=== PATIENT | female | born 1985 | race Caucasian/White ===

== ENCOUNTER 2017-10-14 17:04 | Emergency (ER) | payer OTHER ==
[2017-10-14 17:16] VITALS: BP 155/95
--- NOTE | 2017-10-14 17:32 | ED ---
GI/ HPI - HPI Summary HPI Summary: 32 female presents with abdominal pain for past week. admits to nausea but no vomiting. she had diarrhea yesterday. no blood or mucous in stool. 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 She states rats are tested for parasites. She denies anyone else being sick. no different food. No fevers. No cough. No vaginal discharge. No dysuria. No flank pain. She states the pain is generalized. She says an achy type pain. States she has not been drinking as much due to being nauseous. She has no medical conditions. - History of Current Complaint Chief Complaint: UCAbdominalPain Time Seen by Provider: 10/14/17 17:22 Stated Complaint: ABDOMINAL PAIN Hx Last Menstrual Period: 10 days ago Pain Intensity: 2 - Allergy/Home Medications Allergies/Adverse Reactions: Allergies Allergy/AdvReac Type Severity Reaction Status Date / Time Sulfa (Sulfonamide Allergy Swelling Verified 10/14/17 17:16 Antibiotics) Home Medications: Home Medications ISOtretinoin [Isotretinoin] 80 mg PO DAILY 10/14/17 [History Confirmed 10/14/17] PMH/Surg Hx/FS Hx/Imm Hx Endocrine/Hematology History: Denies: Hx Anticoagulant Therapy Cardiovascular History: Denies: Hx Hypertension - Surgical History Surgery Procedure, Year, and Place: Left ear reconstruction Infectious Disease History: No Infectious Disease History: Reports: Traveled Outside the in Last 30 Days - [place] - Social History Alcohol Use: Occasionally Substance Use Type: Reports: Marijuana Smoking Status (MU): Never Smoked Tobacco Review of Systems Negative: Fever Negative: Chest Pain Negative: Shortness Of Breath Positive: Abdominal Pain, Diarrhea, Nausea. Negative: Vomiting All Other Systems Reviewed And Are Negative: Yes Physical Exam Triage Information Reviewed: Yes Vital Signs On Initial Exam: Initial Vitals Temp Pulse Resp BP Pulse Ox 98.5 F 78 18 155/95 99 10/14/17 17:11 10/14/17 17:11 10/14/17 17:11 10/14/17 17:11 10/14/17 17:11 Vital Signs Reviewed: Yes Appearance: Positive: Well-Appearing Skin: Positive: Warm, Dry Head/Face: Positive: Normal Head/Face Inspection Eyes: Positive: Normal, Conjunctiva Clear ENT: Positive: Pharynx normal Respiratory/Lung Sounds: Positive: Clear to Auscultation, Breath Sounds Present Cardiovascular: Positive: Normal, RRR Abdomen Description: Positive: Soft, Guarding, Other: - mild diffuse tenderness , no rebound Musculoskeletal: Positive: Normal Neurological: Positive: Normal Psychiatric: Positive: Normal Diagnostics - Vital Signs Vital Signs Temp Pulse Resp BP Pulse Ox 10/14/17 17:11 98.5 F 78 18 155/95 99 - Laboratory Lab Statement: Any lab studies that have been ordered have been reviewed, and results considered in the medical decision making process. GIGU Course/Dx - Course Course Of Treatment: 32 female presents with abdominal pain for past week. admits to nausea but no vomiting. she had diarrhea yesterday. no blood or mucous in stool. 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 She states rats are tested for parasites. She denies anyone else being sick. no different food. No fevers. No cough. No vaginal discharge. No dysuria. No flank pain. She states the pain is generalized. She says an achy type pain. States she has not been drinking as much due to being nauseous. She has no medical conditions. on exam has mild generalized abd pain. in no acute distress. sx unlikely due to rat borne disease. unable to give stool sample. will give zofran. will have follow up primary about blood pressure as is elevated at this time. patient understand and agrees with plan. - Diagnoses Differential Diagnoses - Female: Gastroenteritis (Viral), Gastroenteritis ( Bacterial), Urinary Tract Infection Provider Diagnoses: Abdominal pain, Nausea, Elevated blood pressure reading, Diarrhea Discharge - Sign-Out/Discharge Documenting (check all that apply): Patient Departure All imaging exams completed and their final reports reviewed: No Studies - Discharge Plan Condition: Good Disposition: HOME Prescriptions: Ondansetron ODT TAB* [Zofran 4 MG Odt TAB*] 4 mg PO Q6H PRN #16 tab.odt PRN Reason: Nausea Patient Education Materials: Abdominal Pain (ED) Referrals: [facility] [Outside] Additional Instructions: est care with primary Can take Zofran every 6 hours as needed for nausea Drink small amounts of fluid as tolerated When able to eat follow BRAT diet: Bananas, rice, applesauce, toast Take ibuprofen or Tylenol for pain as needed every 6 hours Return to ED if develop fever, severe abdominal pain, or any new or worsening symptoms - Billing Disposition and Condition Condition: GOOD Disposition: Home
== END 2017-10-14 17:37 | disposition home or self-care (01) ==
LOC: UCEAST 17:04
DX: R10.9 Unspecified abdominal pain (principal); R11.0 Nausea; R03.0 Elevated blood-pressure reading, without diagnosis of hypertension; R19.7 Diarrhea, unspecified; Z88.1 Allergy status to other antibiotic agents
CPT/HCPCS: 99212; G0463

== ENCOUNTER 2018-04-29 15:40 | Emergency (ER) | payer OTHER ==
[2018-04-29 15:51] VITALS: BP 145/93
--- NOTE | 2018-04-29 16:05 | UC ---
Hand/Wrist HPI - HPI Summary HPI Summary: 33 yo female presents with LEFT wrist and base of thumb pain for the last 3 weeks. She tells me that 3 weeks ago she tripped going down the stairs and caught herself with her left hand on the railing. Her left wrist/thumb twisted. Since that time she has been having pain at the radial aspect of her left wrist and the base of her left thumb. Twisting motions make her pain worse. Resting makes her pain better. Has been taking ibuprofen with mild relief. She is right handed. Denies numbness or tingling. - History Of Current Complaint Chief Complaint: UCUpperExtremity Stated Complaint: L WRIST INJURY Time Seen by Provider: 04/29/18 16:05 Hx Obtained From: Patient Hx Last Menstrual Period: 1 week ago Onset/Duration: Sudden Onset Severity Initially: Mild Severity Currently: Mild Pain Intensity: 1 Pain Scale Used: 0-10 Numeric - Allergies/Home Medications Allergies/Adverse Reactions: Allergies Allergy/AdvReac Type Severity Reaction Status Date / Time Sulfa (Sulfonamide Allergy Swelling Verified 04/29/18 15:51 Antibiotics) multiple fruits Allergy Unknown Uncoded 04/29/18 15:51 Reaction Details Home Medications: Home Medications Ibuprofen TAB* [Advil TAB*] 400 mg PO BID PRN 04/29/18 [History Confirmed ] PMH/Surg Hx/FS Hx/Imm Hx - Additional Past Medical History Additional PMH: None Other History Of: Negative For: Anticoagulant Therapy - Surgical History Surgical History: Yes Surgery Procedure, Year, and Place: Left ear reconstruction - Family History Known Family History: Positive: None - Social History Occupation: Employed Full-time Lives: With Family Alcohol Use: Weekly Substance Use Type: Marijuana Smoking Status (MU): Never Smoked Tobacco Review of Systems All Other Systems Reviewed And Are Negative: Yes Constitutional: Positive: Negative Skin: Positive: Negative Respiratory: Positive: Negative Cardiovascular: Positive: Negative Gastrointestinal: Positive: Negative Neurovascular: Positive: Negative Musculoskeletal: Positive: Other: - Left wrist/thumb pain Neurological: Positive: Negative Psychological: Positive: Negative Physical Exam - Summary Physical Exam Summary: GENERAL: NAD. WDWN. No pain distress. SKIN: No rashes, sores, lesions, or open wounds. CHEST: No accessory muscle use. Breathing comfortably and in no distress. CV: Pulses intact radial and ulnar. Cap refill <2seconds MSK: Mild TTP at base of thumb dorsal thumb. FROM at wrist and thumb without pain. Pain with hyperflexion and hyperextension of wrist. 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 No edema or obvious bony deformities. No snuffbox tenderness. NEURO: Alert. Sensations intact hand and all fingers. PSYCH: Age appropriate behavior. Triage Information Reviewed: Yes Vital Signs: Initial Vital Signs Temp 98.4 F 04/29/18 15:47 Pulse 88 04/29/18 15:47 Resp 14 04/29/18 15:47 BP 145/93 04/29/18 15:47 Pulse Ox 100 04/29/18 15:47 Vital Signs Reviewed: Yes Hand/Wrist Course/Dx - Course Course Of Treatment: XR: IMPRESSION: NO EVIDENCE FOR FRACTURE. IF THE PATIENT'S SYMPTOMS PERSIST RECOMMEND. FOLLOW-UP IMAGING. She was placed in a thumb spica splint and advised to RICE and use this as much as possible. Given her length of symptoms without improvement - strongly encouraged to f/u with Orthopedics for further evaluation of her pain and injury. - Differential Dx/Diagnosis Provider Diagnosis: Left wrist pain, Pain of left thumb Discharge - Sign-Out/Discharge Documenting (check all that apply): Patient Departure All imaging exams completed and their final reports reviewed: Yes - Discharge Plan Condition: Stable Disposition: HOME Patient Education Materials: Wrist Sprain (ED) Referrals: Tristan Valenzuela MD [Primary Care Provider] - Montana Reed MD [Medical Doctor] - As Soon As Possible Additional Instructions: If you develop a fever, shortness of breath, chest pain, new or worsening symptoms - please call your PCP or go to the ED. Your blood pressure was high at todays visit. Please see your primary provider within 4 weeks for recheck and re-evaluation. 1) Rest, Ice, and elevate your thumb/wrist as much as possible 2) Use the thumb splint as much as possible 3) Please call Orthopedics at the number below to schedule an appointment for further evaluation regarding your injury - Billing Disposition and Condition Condition: STABLE Disposition: Home
== END 2018-04-29 16:35 | disposition home or self-care (01) ==
LOC: UCEAST 15:40
DX: M25.532 Pain in left wrist (principal); M79.645 Pain in left finger(s); W10.9XXA Fall (on) (from) unspecified stairs and steps, initial encounter; Y93.01 Activity, walking, marching and hiking; Y92.9 Unspecified place or not applicable
CPT/HCPCS: 99212; G0463

== ENCOUNTER 2018-08-06 10:00 | Emergency (ER) | payer OTHER ==
--- OUTSIDE RECORDS SUMMARY | 2018-08-06 10:07 | XMS REPORT | Continuity of Care Document ---
:1985 External Reference #:[id number] Demographics Address [address] [place] [address] Mobile Phone [phone] Email Address Preferred Language en Marital Status Not or Scientologist Affiliation Unknown Race White Ethnic Group Not or Author Name Candelario Alonzo Care Team Providers Name Role Phone Tristan Valenzuela MD Primary Care Physician Unavailable Payers Date Identification Numbers Payment Provider Subscriber Policy Number: [id number] [employer] Jessica Gruber PayID: [id number] [address] [place] [address] Onset: 2018 Policy Number: [id number] Vishnu Bozena Gruber Group Name: Julienne [phone] [address] PayID: [id number] [place] [address] Family History Date Family Member(s) Observation Comments General Heart Disease General Hypertension General Stroke General Cancer Social History Type Date Description Comments Sex Unknown 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 ETOH Use Currently consumes alcohol Tobacco Use Start: Unknown Patient has never smoked Smoking Status Reviewed: 07/30/18 Patient has never smoked Exercise Type/Frequency Exercises regularly Allergies, Adverse Reactions, Alerts Active Allergies Reaction Severity Comments Date Sulfa 05/07/2018 Medications Active Medications SIG Qnty Indications Ordering Provider Date Ibuprofen 1 tab by mouth Unknown 400mg Tablets every 4 to 6 hours as needed Vital Signs Date Vital Result Comment 07/30/2018 10:47am Height 61 inches 5'1" Weight 144.00 lb Heart Rate 60 /min BP Systolic 118 mmHg BP Diastolic 72 mmHg Respiratory Rate 12 /min Body Temperature 98.1 F Pain Level 2 BMI (Body Mass Index) 27.2 kg/m2 07/02/2018 2:00pm Height 61 inches 5'1" Weight 136.00 lb BP Systolic 123 mmHg BP Diastolic 72 mmHg Respiratory Rate 14 /min Body Temperature 97.3 F Pain Level 3 BMI (Body Mass Index) 25.7 kg/m2 06/04/2018 1:41pm Height 61 inches 5'1" Weight 136.00 lb Heart Rate 72 /min BP Systolic Sitting 138 mmHg BP Diastolic Sitting 84 mmHg Respiratory Rate 14 /min Pain Level 1 BMI (Body Mass Index) 25.7 kg/m2 05/07/2018 2:12pm Height 61 inches 5'1" Weight 136.00 lb Heart Rate 78 /min Body Temperature 97.3 F O2 % BldC Oximetry 88 % BMI (Body Mass Index) 25.7 kg/m2 Results Test Date Facility Test Result H/L Range Note Laboratory test 04/10/2017 [facility] Test negative finding Urine Comp Metabolic 04/10/2017 [facility] Sodium 137 mmol/L N 133- 145 1 Panel 101 [place] [address] [phone] Potassium 3.9 mmol/L N 3.5-5.0 Chloride 104 mmol/L N 101-111 Co2 Carbon Dioxide 24 mmol/L N 22-32 Anion Gap 9 mmol/L N 2-11 Glucose 77 mg/dL N 70-100 Blood Urea Nitrogen 12 mg/dL N 6-24 Creatinine 0.74 mg/dL N 0.51-0.95 BUN/Creatinine Ratio 16.2 N 8-20 Calcium 9.5 mg/dL N 8.6-10.3 Total Protein 7.2 g/dL N 6.4-8.9 Albumin 4.6 g/dL N 3.2-5.2 Globulin 2.6 g/dL N 2-4 Albumin/Globulin Ratio 1.8 N 1-3 Total Bilirubin 0.60 mg/dL N 0.2-1.0 Alkaline Phosphatase 73 U/L N 34-104 Alt 11 U/L N 7-52 Ast 23 U/L N 13-39 Egfr Non- 90.4 >60 Egfr 116.2 >60 2 Laboratory test finding 04/10/2017 [facility] Triglyceride 72 mg /dL 3 [address] [place] [address] [phone] 1 [id number] 2 Because ethnic data is not always readily available, this report includes an eGFR for both -Americans and non- Americans. The National Kidney Disease Education Program (NKDEP) does not endorse the use of the MDRD equation for patients that are not between the ages of 18 and 70, are , have extremes of body size, muscle mass, or nutritional status, or are non- or non-. According to the National Kidney Foundation, irrespective of diagnosis, the stage of the disease is based on the level of kidney function: Stage Description GFR(mL/min/1.73 m(2)) 1 Kidney damage with normal or decreased GFR 90 2 Kidney damage with mild decrease in GFR 60-89 3 Moderate decrease in GFR 30-59 4 Severe decrease in GFR 15-29 5 Kidney failure <15 (or dialysis) 3 Desirable: <150 Borderline High: 150-199 High: 200-499 Very High: >500 Encounters Type Date Location Provider Dx Diagnosis Office Visit 07/02/2018 [facility] S63.642D Sprain of 2:00p [facility] metacarpophalangeal C.[facility]. joint of left thumb, subs S63.502A Unspecified sprain of left wrist, initial encounter Office 06/04/2018 [facility] S63.642D Sprain of Visit 1:45p [facility] metacarpophalangeal C.M.A. joint of left thumb, subs Office 05/07/2018 [facility] K[facility]y S63.642A Sprain of Visit 2:00p [facility], metacarpophalangeal C.M.A. 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
[2018-08-06 10:18] VITALS: BP 136/86
--- NOTE | 2018-08-06 10:19 | UC ---
Shoulder Pain HPI - HPI Summary HPI Summary: 33 yo female presents with right neck pain. She tells me that 2 days ago she woke up with right neck pain/spasm that is worse with turning her head side to side. She applied ice and heat and took tylenol and ibuprofen. Since that time her pain has improved slightly, but is still present. She has some radiation of the pain down her right arm and into her thumb and index finger. Denies injury, headache, dizziness, SOB, chest pain. She is right handed. - History of Current Complaint Chief Complaint: UCUpperExtremity Stated Complaint: RT SHOULDER PAIN Time Seen by Provider: 08/06/18 10:17 Hx Obtained From: Patient Hx Last Menstrual Period: 07/19/18 Onset/Duration: Sudden Onset Timing: Constant Severity Initially: Severe Severity Currently: Moderate Pain Intensity: 7 - Allergies/Home Medications Allergies/Adverse Reactions: Allergies Allergy/AdvReac Type Severity Reaction Status Date / Time Sulfa (Sulfonamide Allergy Swelling Verified 08/06/18 10:18 Antibiotics) multiple fruits Allergy Unknown Uncoded 08/06/18 10:18 Reaction Details PMH/Surg Hx/FS Hx/Imm Hx - Additional Past Medical History Additional PMH: none Other History Of: Negative For: Anticoagulant Therapy - Surgical History Surgical History: Yes Surgery Procedure, Year, and Place: EXTERNAL Left ear reconstruction. CYST REMOVED RIGHT ARMPIT 2005 - Family History Known Family History: Positive: None - Social History Occupation: Employed Full-time Lives: With Family Alcohol Use: Weekly Substance Use Type: Marijuana Smoking Status (MU): Never Smoked Tobacco Review of Systems All Other Systems Reviewed And Are Negative: Yes Constitutional: Positive: Negative Skin: Positive: Negative Respiratory: Positive: Negative Cardiovascular: Positive: Negative Neurovascular: Positive: Negative Musculoskeletal: Positive: Other: - Right neck pain Neurological: Positive: Negative Psychological: Positive: Negative Physical Exam - Summary Physical Exam Summary: GENERAL: NAD. WDWN. No pain distress. SKIN: No rashes, sores, lesions, or open wounds. CHEST: No accessory muscle use. Breathing comfortably and in no distress. CV: Pulses intact radial and ulnar. Cap refill <2seconds MSK: RIGHT neck: Mild TTP at upper right trapezius muscle with spasm and muscle tightness. Negative spurlings b/l. RIGHT SHOULDER: FROM. Strength 5/5. No edema or obvious bony deformities. Negative empty can, lopez-joelle. NEURO: Alert. Sensations intact C4-T1 B/L. PSYCH: Age appropriate behavior. Triage Information Reviewed: Yes Vital Signs: Initial Vital Signs Temp 98.7 F 08/06/18 10:12 Pulse 73 08/06/18 10:12 Resp 18 08/06/18 10:12 BP 136/86 08/06/18 10:12 Pulse Ox 100 08/06/18 10:12 Vital Signs Reviewed: Yes Shoulder Course/Dx - Course Course Of Treatment: Suspect muscle strain/spasm of trapezius. Will have her continue rest, ice/heat , and NSAIDs and will rx for lidoderm patch and muscle relaxers. Recommend f/u with PT for further treatment and f/u with PCP for recheck in 1-2 weeks if still symptomatic. - Differential Dx/Diagnosis Provider Diagnosis: Muscle spasm Discharge - Sign-Out/Discharge Documenting (check all that apply): Patient Departure All imaging exams completed and their final reports reviewed: No Studies - Discharge Plan Condition: Stable Disposition: HOME Prescriptions: Lidocaine PATCH 5%* [Lidoderm 5% Patch*] 1 patch TRANSDERM DAILY PRN #10 patch PRN Reason: Pain Methocarbamol TAB* [Robaxin 500 MG TAB*] 1 gm PO TID PRN #42 tab PRN Reason: Pain Patient Education Materials: Muscle Spasm (ED) Referrals: Tristan Valenzuela MD [Primary Care Provider] - Additional Instructions: If you develop a fever, shortness of breath, chest pain, new or worsening symptoms - please call your PCP or go to the ED immediately. 1) You may continue to take tylenol/ibuprofen as directed for discomfort 2) Apply heat and practice gentle stretching exercises to relax the muscle 3) I recommend that you schedule an appointment with Physical therapy for further treatment of your neck spasm - Billing Disposition and Condition Condition: STABLE Disposition: Home - Attestation Statements Provider Attestation: I was available for consult. This patient was seen by the ROBER. The patient was not presented to, seen by, or examined by me. -Lindy
== END 2018-08-06 10:36 | disposition home or self-care (01) ==
LOC: UCEAST 10:00
DX: M62.838 Other muscle spasm (principal); Z88.2 Allergy status to sulfonamides
CPT/HCPCS: 99212; G0463